=== PATIENT | female | born 1990 | race Caucasian/White ===

== ENCOUNTER → 2016-10-07 | Outpatient (CLI) | payer OTHER | LOC: MW.CHOBGYN 12:09 | PROVIDERS: ATTEND Obstetrics & Gynecology | DX: R10.9 Unspecified abdominal pain (principal) | CPT/HCPCS: 36415; 84702 ==

== ENCOUNTER → 2016-12-09 | Outpatient (CLI) | payer OTHER ==
[~2016-12-09] MED LIST: Iopamidol 612 MG/ML 30 ML SDV IUTERINE STA
--- NOTE | 2016-12-09 11:23 | CR ---
EXAMINATION: Hysterosalpingogram. HISTORY: Infertility. Evaluate for tubal patency. History of tubal and salpingectomy. PROCEDURE/FINDINGS: Written informed consent was obtained from the patient. Perineum was prepped wit h Betadine and after placement of vaginal speculum, the cervix was prepped with Betadine. A 5 [place] catheter was placed and after inflation of the balloon, 10 cc of contrast was injected until cornua l regions are filled and multiple views of the pelvis are obtained. The uterine cavity is normal in configuration. No suspicious filling defects are seen. The left fallopian tubes are patent and spillage of contrast is noted into peritoneal cavity. The ri ght fallopian tube is partially visualized to the mid point, consistent with history. IMPRESSION: 1. Patent left fallopian tube. 2. 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
== END ==
LOC: MW.DI 08:26
PROVIDERS: ATTEND Obstetrics & Gynecology
DX: N92.6 Irregular menstruation, unspecified (principal); N97.1 Female infertility of tubal origin
CPT/HCPCS: 58340; 74740; 81025; Q9967

== ENCOUNTER 2020-04-12 00:14 | Inpatient (IN) | payer BC ==
[2020-04-12] MEDS ORDERED: Tranexamic Acid 1,000 MG in Sodium Chloride 0.9% 100 ML IV PRN (00:54)
[2020-04-12] MEDS ORDERED: Terbutaline 1 MG/ML SDV SUBCUT PRN (00:54)
[2020-04-12] MEDS ORDERED: Carboprost Tromethamine 250 MCG/1 ML Amp IM PRN (00:54)
[2020-04-12] MEDS ORDERED: Water For Irrigation,Sterile 1,000 ML Container IRR PRN (00:54)
[2020-04-12] MEDS ORDERED: Butorphanol 1 MG/ML SDV IVPUSH PRN (00:54)
[2020-04-12] MEDS ORDERED: Methylergonovine 0.2 MG/1 ML Amp IM PRN (00:54)
[2020-04-12] MEDS ORDERED: Sodium Chloride 0.9% 10 ML Syringe FLUSH PRN (00:54)
[2020-04-12] MEDS ORDERED: Misoprostol 25 MCG (1/4 of 100 MCG) Tab VAG PRN ×2 (00:54)
[2020-04-12] MEDS ORDERED: Nalbuphine 10 MG/1 ML Vial IVPUSH PRN (00:54)
[2020-04-12] MEDS ORDERED: Sodium Chloride 0.9% 10 ML SDV IV PRN (00:54)
[2020-04-12] MEDS ORDERED: Misoprostol 200 MCG Tab PO PRN (00:54)
[2020-04-12] MEDS ORDERED: Lidocaine 1% 50 ML MDV INJECT PRN (00:54)
[2020-04-12] MEDS ORDERED: Sodium Chloride 0.9% 2.5 ML Syringe FLUSH PRN (00:54)
[2020-04-12] MEDS ORDERED: Oxytocin/0.9 % Sodium Chloride 30 UNIT/500 ML BAG IV SCH ×2 (01:00)
[2020-04-12] MEDS ORDERED: Misoprostol 25 MCG (1/4 of 100 MCG) Tab PO ONE (01:01)
[2020-04-12] MEDS ORDERED: Ondansetron 4 MG/2 ML SDV IVPUSH PRN (01:23)
--- NOTE | 2020-04-12 07:29 | PCM.LDHP ---
L&D History of Present Illness - General Date of Service: 04/12/20 Admit Problem/Dx: Patient Status Order with Admit Dx/Problem 04/12/20 00:54 Patient Status [ADT] Routine Admission Diagnosis/Problem Admission Diagnosis/Problem 04/12/20 07:23 Radha is a 29 yo at 39.6 weeks gestation (DEEPALI 04/13/2020) that presents today for elective IOL. A neg, RI, GBS neg. Rhogam received 01/18/2020 at 28 weeks gestation. Patient denies any complaints or concerns at this time. Pertinent medical history includes GERD, SAB. FHR 130, + accels, no decels, Cat I. Julia mild-moderate q 2-4 min. Denies LOF, vaginal bleeding; reports ample movement. C/O 6-7/10 contraction pain. SVE 3-4/90/-2, intact, cephalic. Last dose of cytotec at 1:56 am. 04/12/20 07:29 Source of Information: Patient History Limitations: Reports: No Limitations - History of Present Illness Pain Score: 8 - Related Data Allergies/Adverse Reactions: Allergies Allergy/AdvReac Type Severity Reaction Status Date / Time No Known Allergies Allergy Verified 04/12/20 00:26 Home Medications: Home Meds Famotidine 40 mg PO DAILY 04/04/20 [History] 95/Iron Fum/Folic/Dha [ + Dha Combo Pack] 1 tab PO 04/12/20 [History] Past Medical History HEENT History: Reports: None Cardiovascular History: Reports: None Respiratory History: Reports: None Gastrointestinal History: Reports: GERD Genitourinary History: Reports: None [employer] History: Reports: , Spontaneous : 4 Para: 0 Musculoskeletal History: Reports: None Neurological History: Reports: Migraines Psychiatric History: Reports: None Endocrine/Metabolic History: Reports: None Hematologic History: Reports: None, Other (See Below) (Maternal Rh negative status) Immunologic History: Reports: None Oncologic (Cancer) History: Reports: None Dermatologic History: Reports: None - Infectious Disease History Infectious Disease History: Reports: Chicken Pox - Past Surgical History Head Surgeries/Procedures: Reports: None HEENT Surgical History: Reports: None Cardiovascular Surgical History: Reports: None Respiratory Surgical History: Reports: None GI Surgical History: Reports: None Female Surgical History: Reports: D&C Endocrine Surgical History: Reports: None Neurological Surgical History: Reports: None Musculoskeletal Surgical History: Reports: None Oncologic Surgical History: Reports: None Dermatological Surgical History: Reports: None Social & Family History - Family History HEENT: Reports: Hearing Impairment, Impaired Vision Cardiac: Reports: Hypertension Respiratory: Reports: None GI: Reports: Cholelithiasis : Reports: None OBGYN: Reports: Musculoskeletal: Reports: None Neurological: Reports: None Psychiatric: Reports: None Endocrine/Metabolic: Reports: Diabetes, type II Hematologic: Reports: None Immunologic: Reports: None Dermatologic: Reports: None Oncologic: Reports: None - Tobacco Use Smoking Status *Q: Former Smoker Used Tobacco, but Quit: Yes Month/Year Tobacco Last Used: 08/2019 Second Hand Smoke Exposure: Yes - Caffeine Use Caffeine Use: Reports: Coffee - Alcohol Use Alcohol Use History: No - Recreational Drug Use Recreational Drug Use: No H&P Review of Systems - Review of Systems: Review Of Systems: Comprehensive ROS is negative, except as noted in HPI. General: Reports: No Symptoms HEENT: Reports: No Symptoms Pulmonary: Reports: No Symptoms Cardiovascular: Reports: No Symptoms Gastrointestinal: Reports: No Symptoms Genitourinary: Reports: No Symptoms Musculoskeletal: Reports: No Symptoms Skin: Reports: No Symptoms Psychiatric: Reports: No Symptoms Neurological: Reports: No Symptoms Hematologic/Lymphatic: Reports: No Symptoms Immunologic: Reports: No Symptoms L&D Exam - Exam Exam: See Below - Vital Signs Vital Signs: T 98.3, HR 95, RR 16, BP 129/88 (95) Weight: 205 lb - OB Specific Fundal Height In cm: 39 Contraction Duration (sec): 40-60 Contraction Frequency (min): 2-4 Contraction Intensity: Mild to Moderate Movement: Active Heart Tones: Present Heart Tones per Min: 130 Heart Rate (FHR) Variability: Moderate (6-25 bmp) Presentation: Vertex - Bowers Score Bowers Score Cervix Position: Midposition Bowers Score Consistency: Soft Bowers Score Effacement: >80% Bowers Score Dilation: 1-2 cm Bowers Score Infant's Station: -2 Bowers Score Total: 8 - Exam General: Alert, Oriented, Cooperative, Mild Distress HEENT: Conjunctiva Clear, Hearing Intact, Mucosa Moist & [place], Posterior Pharynx Clear, PERRLA Neck: Supple, Trachea Midline Lungs: Clear to Auscultation, Normal Respiratory Effort Cardiovascular: Regular Rate, Regular Rhythm GI/Abdominal Exam: Normal Bowel Sounds, Soft, Non-Tender, No Organomegaly, No Distention Rectal Exam: Deferred Genitourinary: Normal external exam, Normal bimanual exam, Enlarged uterus (Gravid uterus) Back Exam: Normal Inspection, Full Range of Motion Extremities: Normal Inspection, Normal Range of Motion, Non-Tender, No Pedal Edema, Normal Capillary Refill Skin: Warm, Dry, Intact Neurological: Cranial Nerves Intact, Reflexes Equal Bilateral Psychiatric: Alert, Normal Affect, Normal Mood - Patient Data Lab Results Last 24 hrs: Laboratory Results - last 24 hr 04/12/20 04/12/20 04/12/20 Range/Units 00:50 00:50 01:15 WBC 9.38 (4.0-11.0) K/uL RBC 3.76 L (4.30-5.90) M/uL Hgb 12.0 (12.0-16.0) g/dL Hct 35.5 L (36.0-46.0) % MCV 94.4 (80.0-98.0) fL MCH 31.9 (27.0-32.0) pg MCHC 33.8 (31.0-37.0) g/dL RDW Std Deviation 42.2 (28.0-62.0) fl RDW Coeff of Nancy 13 (11.0-15.0) % Plt Count 253 (150-400) K/uL MPV 10.20 (7.40-12.00) fL COVID-19 (MICHAEL) NEGATIVE (NEGATIVE) Blood Type A NEGATIVE Antibody Screen NEGATIVE Result Diagrams: 04/12/20 00:50 - Problem List (1) Encounter for induction of labor SNOMED Code(s): 662443494 ICD Code: Z34.90 - ENCNTR FOR SUPRVSN OF NORMAL , UNSP, UNSP TRIMESTER Status: Acute Priority: High Current Visit: Yes (2) 39 weeks gestation of SNOMED Code(s): 47919057 ICD Code: Z3A.39 - 39 WEEKS GESTATION OF Status: Acute Priority: High Current Visit: Yes Problem List Initiated/Reviewed/Updated: Yes Orders Last 24hrs: Active Orders 24 hr Category Date Time Status Patient Status [ADT] Routine ADT 04/12/20 00:54 Active Bedrest Bathroom Privileges [RC] ASDIRECTED Care 04/12/20 00:54 Active Communication Order [RC] ASDIRECTED Care 04/12/20 00:54 Active Communication Order [RC] ASDIRECTED Care 04/12/20 00:54 Active Communication Order [RC] ASDIRECTED Care 04/12/20 00:54 Active Heart Tones [RC] CONTINUOUS Care 04/12/20 00:54 Active Non Stress Test [RC] PER UNIT ROUTINE Care 04/12/20 00:54 Active May Shower [RC] ASDIRECTED Care 04/12/20 00:54 Active Notify Provider [RC] PRN Care 04/12/20 00:54 Active Notify Provider [RC] PRN Care 04/12/20 00:54 Active Notify Provider [RC] PRN Care 04/12/20 00:54 Active Notify Provider [RC] STAT Care 04/12/20 00:54 Active Up ad Maddi [RC] ASDIRECTED Care 04/12/20 00:54 Active Vaginal Exam [RC] PRN Care 04/12/20 00:54 Active Vaginal Exam [RC] PRN Care 04/12/20 00:54 Active Vital Signs [RC] PER UNIT ROUTINE Care 04/12/20 00:54 Active Vital Signs [RC] PER UNIT ROUTINE Care 04/12/20 00:54 Active RPR (SYPHILIS SERO) W/ RFLX [REF] Routine Lab 04/12/20 00:50 Received Butorphanol [Stadol] Med 04/12/20 00:54 Active 1 mg IVPUSH Q1H PRN Carboprost Tromethamine [Hemabate DS] Med 04/12/20 00:54 Active 250 mcg IM ASDIRECTED PRN Lactated Ringers [Ringers, Lactated] 1,000 ml Med 04/12/20 01:00 Active IV ASDIRECTED Lidocaine 1% [Xylocaine 1%] Med 04/12/20 00:54 Active 50 ml INJECT ONETIME PRN Methylergonovine [Methergine] Med 04/12/20 00:54 Active 0.2 mg IM ASDIRECTED PRN Nalbuphine [Nubain] Med 04/12/20 00:54 Active 10 mg IVPUSH Q1H PRN Ondansetron [Zofran] Med 04/12/20 01:23 Active 4 mg IVPUSH Q6H PRN Oxytocin/0.9 % Sodium Chloride [Oxytocin 30 Unit/500 ML Med 04/12/20 01:00 Active -NS] 30 unit in 500 ml IV TITRATE Oxytocin/0.9 % Sodium Chloride [Oxytocin 30 Unit/500 ML Med 04/12/20 01:00 Active -NS] 30 unit in 500 ml IV TITRATE Sodium Chloride 0.9% [Normal Saline] Med 04/12/20 00:54 Active 10 ml IV ASDIRECTED PRN Sodium Chloride 0.9% [Saline Flush] Med 04/12/20 00:54 Active 10 ml FLUSH ASDIRECTED PRN Sodium Chloride 0.9% [Saline Flush] Med 04/12/20 00:54 Active 2.5 ml FLUSH ASDIRECTED PRN Terbutaline [Brethine] Med 04/12/20 00:54 Active 0.25 mg SUBCUT ASDIRECTED PRN Tranexamic Acid [Cyklokapron] 1,000 mg Med 04/12/20 00:54 Active Sodium Chloride 0.9% [Normal Saline] 100 ml IV ONETIME Water For Irrigation,Sterile [Sterile Water for Med 04/12/20 00:54 Active Irrigation] 1,000 ml IRR ASDIRECTED PRN miSOPROStoL [Cytotec] Med 04/12/20 00:54 Active 200 mcg PO ONETIME PRN miSOPROStoL [Cytotec] Med 04/12/20 00:54 Active 25 mcg VAG ONETIME PRN miSOPROStoL [Cytotec] Med 04/12/20 00:54 Active 25 mcg VAG Q4H PRN Scalp Electrode [WOMSER] Per Unit Routine Oth 04/12/20 00:54 Ordered Medication Administration Instruction [OM.PC] Q3H Oth 04/12/20 01:00 Ordered Peripheral IV Insertion Adult [OM.PC] Routine Oth 04/12/20 00:54 Ordered Resuscitation Status Routine Resus Stat 04/12/20 00:54 Ordered Medication Orders Butorphanol Tartrate (Stadol) 1 mg IVPUSH Q1H PRN PRN Reason: Pain Last Admin: 04/12/20 04:18 Dose: 1 mg Documented by: HANSA Carboprost Tromethamine (Hemabate Ds) 250 mcg IM ASDIRECTED PRN PRN Reason: Post Hemorrhage Oxytocin/Sodium Chloride (Oxytocin 30 Unit/500 Ml-Ns) 30 unit in 500 mls @ 500 mls/hr IV TITRATE [place] Tranexamic Acid 1,000 mg/ (Sodium Chloride) 110 mls @ 660 mls/hr IV ONETIME PRN PRN Reason: Bleeding Oxytocin/Sodium Chloride (Oxytocin 30 Unit/500 Ml-Ns) 30 unit in 500 mls @ 2 mls/hr IV TITRATE [place]; Protocol Lactated Ringer's (Ringers, Lactated) 1,000 mls @ 150 mls/hr IV ASDIRECTED [place] Lidocaine HCl (Xylocaine 1%) 50 ml INJECT ONETIME PRN PRN Reason: Laceration repair Methylergonovine Maleate (Methergine) 0.2 mg IM ASDIRECTED PRN PRN Reason: Post Hemorrhage Misoprostol (Cytotec) 200 mcg PO ONETIME PRN PRN Reason: Post Hemorrhage Misoprostol (Cytotec) 25 mcg VAG ONETIME PRN PRN Reason: Cervical Ripening Last Admin: 04/12/20 01:56 Dose: 25 mcg Documented by: HANSA Misoprostol (Cytotec) 25 mcg VAG Q4H PRN PRN Reason: Cervical Ripening Nalbuphine HCl (Nubain) 10 mg IVPUSH Q1H PRN PRN Reason: Pain (severe 7-10) Ondansetron HCl (Zofran) 4 mg IVPUSH Q6H PRN PRN Reason: Nausea/Vomiting Sodium Chloride (Saline Flush) 10 ml FLUSH ASDIRECTED PRN PRN Reason: Keep Vein Open Sodium Chloride (Saline Flush) 2.5 ml FLUSH ASDIRECTED PRN PRN Reason: Keep Vein Open Sodium Chloride (Normal Saline) 10 ml IV ASDIRECTED PRN PRN Reason: IV Use Sterile Water (Sterile Water For Irrigation) 1,000 ml IRR ASDIRECTED PRN PRN Reason: delivery Terbutaline Sulfate (Brethine) 0.25 mg SUBCUT ASDIRECTED PRN PRN Reason: Tacysystole Assessment/Plan Comment:: Admit to L&D for observation of elective IOL at 39.6 weeks gestation in anticipation of . See new orders. May receive an epidural between 5-6 cm. RN to notify CNM if problems or concerns arise. Dr. Garcia notified and agreeable with POC.
[2020-04-12] MEDS: Lactated Ringers 1,000 ML IV SCH ×2 (07:42→08:22)
[2020-04-12] MEDS ORDERED: Ropivacaine HCl/PF 100 ML ONE (08:00)
[2020-04-12] MEDS ORDERED: fentaNYL 100 MCG/2 ML SDV ONE (08:00)
--- NOTE | 2020-04-12 08:26 | PCM.PREANE ---
Preanesthetic Assessment - Anesthesia/Transfusion/Family Hx Anesthesia History: Prior Anesthesia Without Reaction Family History of Anesthesia Reaction: No Transfusion History: No Prior Transfusion(s) - Physical Assessment NPO Status Date: 04/12/20 NPO Status Time: 01:00 Height: 1.73 m Weight: 92.986 kg ASA Class: 2 - Lab Values: Laboratory Last Values WBC 9.38 K/uL (4.0-11.0) 04/12/20 00:50 RBC 3.76 M/uL (4.30-5.90) L 04/12/20 00:50 Hgb 12.0 g/dL (12.0-16.0) 04/12/20 00:50 Hct 35.5 % (36.0-46.0) L 04/12/20 00:50 MCV 94.4 fL (80.0-98.0) 04/12/20 00:50 MCH 31.9 pg (27.0-32.0) 04/12/20 00:50 MCHC 33.8 g/dL (31.0-37.0) 04/12/20 00:50 RDW Std Deviation 42.2 fl (28.0-62.0) 04/12/20 00:50 RDW Coeff of Nancy 13 % (11.0-15.0) 04/12/20 00:50 Plt Count 253 K/uL (150-400) 04/12/20 00:50 MPV 10.20 fL (7.40-12.00) 04/12/20 00:50 COVID-19 (MICHAEL) NEGATIVE (NEGATIVE) 04/12/20 01:15 Blood Type A NEGATIVE 04/12/20 00:50 Antibody Screen NEGATIVE 04/12/20 00:50 - Allergies Allergies/Adverse Reactions: Allergies Allergy/AdvReac Type Severity Reaction Status Date / Time No Known Allergies Allergy Verified 04/12/20 00:26 - Acknowledgements Anesthesia Type Planned: Epidural Pt an Appropriate Candidate for the Planned Anesthesia: Yes Alternatives and Risks of Anesthesia Discussed w Pt/Guardian: Yes Pt/Guardian Understands and Agrees with Anesthesia Plan: Yes PreAnesthesia Questionnaire HEENT History: Reports: None Cardiovascular History: Reports: None Respiratory History: Reports: None Gastrointestinal History: Reports: GERD Genitourinary History: Reports: None [employer] History: Reports: , Spontaneous Musculoskeletal History: Reports: None Neurological History: Reports: Migraines Psychiatric History: Reports: None Endocrine/Metabolic History: Reports: None Hematologic History: Reports: None, Other (See Below) (Maternal Rh negative status) Immunologic History: Reports: None Oncologic (Cancer) History: Reports: None Dermatologic History: Reports: None - Infectious Disease History Infectious Disease History: Reports: Chicken Pox - Past Surgical History Head Surgeries/Procedures: Reports: None HEENT Surgical History: Reports: None Cardiovascular Surgical History: Reports: None Respiratory Surgical History: Reports: None GI Surgical History: Reports: None Female Surgical History: Reports: D&C Endocrine Surgical History: Reports: None Neurological Surgical History: Reports: None Musculoskeletal Surgical History: Reports: None Oncologic Surgical History: Reports: None Dermatological Surgical History: Reports: None - SUBSTANCE USE Smoking Status *Q: Former Smoker Tobacco Use Within Last Twelve Months: Cigarettes Second Hand Smoke Exposure: Yes Recreational Drug Use History: No - HOME MEDS Home Medications: Home Meds Famotidine 40 mg PO DAILY 04/04/20 [History] 95/Iron Fum/Folic/Dha [ + Dha Combo Pack] 1 tab PO 04/12/20 [History] - CURRENT (IN HOUSE) MEDS Current Meds: Current Medications Butorphanol Tartrate (Stadol) 1 mg IVPUSH Q1H PRN PRN Reason: Pain Last Admin: 04/12/20 04:18 Dose: 1 mg Documented by: Carboprost Tromethamine (Hemabate Ds) 250 mcg IM ASDIRECTED PRN PRN Reason: Post Hemorrhage Oxytocin/Sodium Chloride (Oxytocin 30 Unit/500 Ml-Ns) 30 unit in 500 mls @ 500 mls/hr IV TITRATE [place] Tranexamic Acid 1,000 mg/ (Sodium Chloride) 110 mls @ 660 mls/hr IV ONETIME PRN PRN Reason: Bleeding Oxytocin/Sodium Chloride (Oxytocin 30 Unit/500 Ml-Ns) 30 unit in 500 mls @ 2 mls/hr IV TITRATE [place]; Protocol Lactated Ringer's (Ringers, Lactated) 1,000 mls @ 150 mls/hr IV ASDIRECTED [place] Last Infusion: 04/12/20 08:22 Dose: 150 mls/hr Documented by: Lidocaine HCl (Xylocaine 1%) 50 ml INJECT ONETIME PRN PRN Reason: Laceration repair Methylergonovine Maleate (Methergine) 0.2 mg IM ASDIRECTED PRN PRN Reason: Post Hemorrhage Misoprostol (Cytotec) 200 mcg PO ONETIME PRN PRN Reason: Post Hemorrhage Misoprostol (Cytotec) 25 mcg VAG ONETIME PRN PRN Reason: Cervical Ripening Last Admin: 04/12/20 01:56 Dose: 25 mcg Documented by: Misoprostol (Cytotec) 25 mcg VAG Q4H PRN PRN Reason: Cervical Ripening Nalbuphine HCl (Nubain) 10 mg IVPUSH Q1H PRN PRN Reason: Pain (severe 7-10) Ondansetron HCl (Zofran) 4 mg IVPUSH Q6H PRN PRN Reason: Nausea/Vomiting Sodium Chloride (Saline Flush) 10 ml FLUSH ASDIRECTED PRN PRN Reason: Keep Vein Open Sodium Chloride (Saline Flush) 2.5 ml FLUSH ASDIRECTED PRN PRN Reason: Keep Vein Open Sodium Chloride (Normal Saline) 10 ml IV ASDIRECTED PRN PRN Reason: IV Use Sterile Water (Sterile Water For Irrigation) 1,000 ml IRR ASDIRECTED PRN PRN Reason: delivery Terbutaline Sulfate (Brethine) 0.25 mg SUBCUT ASDIRECTED PRN PRN Reason: Tacysystole Discontinued Medications Fentanyl (Sublimaze) Confirm Administered Dose 100 mcg .ROUTE .STK-MED ONE Stop: 04/12/20 08:01 Ropivacaine (Naropin 0.2%) Confirm Administered Dose 100 mls @ as directed .ROUTE .STK-MED ONE Stop: 04/12/20 08:01 Misoprostol (Cytotec) 25 mcg PO ONETIME ONE Stop: 04/12/20 01:02 Last Admin: 04/12/20 01:56 Dose: 25 mcg Documented by:
--- NOTE | 2020-04-12 08:29 | PCM.PRNOTE ---
- Free Text/Narrative Note: Anes Note Patietn requests epidural for L&D. Sitting position, level L2-L3 midline approach. Sterile technique. Chlorapep scrub to lumbar area. Sterile fenestrated drape applied. Epidural space easily achieved using SHAHLA tecnhique. SHAHLA at 3 cm. Cath threaded 5 cm with ease. Cath secured at 10 cm at skin using clear adhesive dessing. 0815 test 3 cc 1.5% lido with epi negative. 0818 Load 10 cc 0.2% ropivicaine with 1 mcg cc fentanyl in slow divided doses. 0823 Pump started with 90 cc same solution. Rate is 8 cc hr with 6 cc q 20 min prn bolus. Estefanía well. Time with patient [id number] Ej Chaparro CRNA
--- NOTE | 2020-04-12 14:25 | PCM.DEL ---
L & D Note - General Info Date of Service: 04/12/20 Mother's Due Date: 04/13/20 - Delivery Note Labor: Augmented by Oxytocin Cervical Ripening Method: Misoprostil Delivery Outcome: Livebirth Delivery Method: Spontaneous Vaginal Delivery-Single Presentation: Vertex Nuchal Cord: Present (x3), Reduced Anesthesia Type: Epidural Episiotomy Type: None Laceration: None Placenta: Intact, Spontaneous Cord: 3 Vessels Estimated Blood Loss: 150 [place]: Suctioned, Bulb Syringe, Stimulated Score 1 min: 8 Score 5 min: 8 Second Stage Interventions: Reports: Second Nurse Assessed Progress of Descent, Second Nurse Reviewed Contraction Pattern, Second Nurse Reviewed Heart Tones, Encouragement Given, Pushing Effectively, Pushing, Pulls Own Legs Back Delivery Comments (Free Text/Narrative):: viable female; epidural for pain relief; head delivered with good pushing; shoulders followed easily after; nuchal x3, reduced; baby to mom's abdomen [id number] for assessment; APGARs 8/8; weight pending; cord doubly clamped, cut by FOB after approximately 3 minutes; baby to warmer for continued assessment; placenta delivered grossly intact, sulma; 3VC; EBL 150 mL; pitocin to IVF; perineum intact; mom and baby left in stable condition with nurses at warmer and bedside for assessment - General Info Date of Service: 04/12/20 Admission Dx/Problem (Free Text): Patient Status Order with Admit Dx/Problem 04/12/20 00:54 Patient Status [ADT] Routine Admission Diagnosis/Problem Admission Diagnosis/Problem 04/12/20 07:23 Radha is a 29 yo at 39.6 weeks gestation (DEEPALI 04/13/2020) that presents today for elective IOL. A neg, RI, GBS neg. Rhogam received 01/18/2020 at 28 weeks gestation. Patient denies any complaints or concerns at this time. Pertinent medical history includes GERD, SAB. FHR 130, + accels, no decels, Cat I. Julia mild-moderate q 2-4 min. Denies LOF, vaginal bleeding; reports ample movement. C/O 6-7/10 contraction pain. SVE 3-4/90/-2, intact, cephalic. Last dose of cytotec at 1:56 am. 04/12/20 07:29 Functional Status: Reports: Pain Controlled - Review of Systems General: Reports: No Symptoms HEENT: Reports: No Symptoms Pulmonary: Reports: No Symptoms Cardiovascular: Reports: No Symptoms Gastrointestinal: Reports: No Symptoms Genitourinary: Reports: No Symptoms Musculoskeletal: Reports: No Symptoms Skin: Reports: No Symptoms Neurological: Reports: No Symptoms Psychiatric: Reports: No Symptoms - Patient Data Weight - Most Recent: 205 lb Lab Results Last 24 Hours: Laboratory Results - last 24 hr 04/12/20 04/12/20 04/12/20 Range/Units 00:50 00:50 01:15 WBC 9.38 (4.0-11.0) K/uL RBC 3.76 L (4.30-5.90) M/uL Hgb 12.0 (12.0-16.0) g/dL Hct 35.5 L (36.0-46.0) % MCV 94.4 (80.0-98.0) fL MCH 31.9 (27.0-32.0) pg MCHC 33.8 (31.0-37.0) g/dL RDW Std Deviation 42.2 (28.0-62.0) fl RDW Coeff of Nancy 13 (11.0-15.0) % Plt Count 253 (150-400) K/uL MPV 10.20 (7.40-12.00) fL COVID-19 (MICHAEL) NEGATIVE (NEGATIVE) Blood Type A NEGATIVE Antibody Screen NEGATIVE Med Orders - Current: Current Medications Butorphanol Tartrate (Stadol) 1 mg IVPUSH Q1H PRN PRN Reason: Pain Last Admin: 04/12/20 04:18 Dose: 1 mg Documented by: Carboprost Tromethamine (Hemabate Ds) 250 mcg IM ASDIRECTED PRN PRN Reason: Post Hemorrhage Oxytocin/Sodium Chloride (Oxytocin 30 Unit/500 Ml-Ns) 30 unit in 500 mls @ 500 mls/hr IV TITRATE [place] Tranexamic Acid 1,000 mg/ (Sodium Chloride) 110 mls @ 660 mls/hr IV ONETIME PRN PRN Reason: Bleeding Oxytocin/Sodium Chloride (Oxytocin 30 Unit/500 Ml-Ns) 30 unit in 500 mls @ 2 mls/hr IV TITRATE [place]; Protocol Last Titration: 04/12/20 12:22 Dose: 4 munits/min, 4 mls/hr Documented by: Lactated Ringer's (Ringers, Lactated) 1,000 mls @ 150 mls/hr IV ASDIRECTED [place] Last Infusion: 04/12/20 08:22 Dose: 150 mls/hr Documented by: Lidocaine HCl (Xylocaine 1%) 50 ml INJECT ONETIME PRN PRN Reason: Laceration repair Methylergonovine Maleate (Methergine) 0.2 mg IM ASDIRECTED PRN PRN Reason: Post Hemorrhage Misoprostol (Cytotec) 200 mcg PO ONETIME PRN PRN Reason: Post Hemorrhage Misoprostol (Cytotec) 25 mcg VAG ONETIME PRN PRN Reason: Cervical Ripening Last Admin: 04/12/20 01:56 Dose: 25 mcg Documented by: Misoprostol (Cytotec) 25 mcg VAG Q4H PRN PRN Reason: Cervical Ripening Nalbuphine HCl (Nubain) 10 mg IVPUSH Q1H PRN PRN Reason: Pain (severe 7-10) Ondansetron HCl (Zofran) 4 mg IVPUSH Q6H PRN PRN Reason: Nausea/Vomiting Sodium Chloride (Saline Flush) 10 ml FLUSH ASDIRECTED PRN PRN Reason: Keep Vein Open Sodium Chloride (Saline Flush) 2.5 ml FLUSH ASDIRECTED PRN PRN Reason: Keep Vein Open Sodium Chloride (Normal Saline) 10 ml IV ASDIRECTED PRN PRN Reason: IV Use Sterile Water (Sterile Water For Irrigation) 1,000 ml IRR ASDIRECTED PRN PRN Reason: delivery Terbutaline Sulfate (Brethine) 0.25 mg SUBCUT ASDIRECTED PRN PRN Reason: Tacysystole Discontinued Medications Fentanyl (Sublimaze) Confirm Administered Dose 100 mcg .ROUTE .STK-MED ONE Stop: 04/12/20 08:01 Ropivacaine (Naropin 0.2%) Confirm Administered Dose 100 mls @ as directed .ROUTE .STK-MED ONE Stop: 04/12/20 08:01 Misoprostol (Cytotec) 25 mcg PO ONETIME ONE Stop: 04/12/20 01:02 Last Admin: 04/12/20 01:56 Dose: 25 mcg Documented by: - Exam General: Alert, Oriented, Cooperative, No Acute Distress Lungs: Normal Respiratory Effort Cardiovascular: Regular Rate, Regular Rhythm GI/Abdominal Exam: Soft, Non-Tender (Female) Exam: Normal External Exam Back Exam: Normal Inspection Extremities: Normal Inspection, Normal Capillary Refill Skin: Warm, Dry, Intact Neurological: No New Focal Deficit, Normal Speech Psy/Mental Status: Alert, Normal Affect, Normal Mood - Problem List & Annotations (1) (spontaneous vaginal delivery) SNOMED Code(s): 508856197 Code(s): O80 - ENCOUNTER FOR FULL-TERM UNCOMPLICATED DELIVERY Status: Acute Priority: High Current Visit: Yes - Problem List Review Problem List Initiated/Reviewed/Updated: Yes - My Orders Last 24 Hours: My Active Orders 04/12/20 00:50 RPR (SYPHILIS SERO) W/ RFLX [REF] Routine 04/12/20 00:54 Patient Status [ADT] Routine Bedrest Bathroom Privileges [RC] ASDIRECTED Communication Order [RC] ASDIRECTED Communication Order [RC] ASDIRECTED Communication Order [RC] ASDIRECTED Heart Tones [RC] CONTINUOUS Non Stress Test [RC] PER UNIT ROUTINE May Shower [RC] ASDIRECTED Notify Provider [RC] PRN Notify Provider [RC] PRN Notify Provider [RC] PRN Notify Provider [RC] STAT Up ad Maddi [RC] ASDIRECTED Vaginal Exam [RC] PRN Vaginal Exam [RC] PRN Vital Signs [RC] PER UNIT ROUTINE Vital Signs [RC] PER UNIT ROUTINE Butorphanol [Stadol] 1 mg IVPUSH Q1H PRN Carboprost Tromethamine [Hemabate DS] 250 mcg IM ASDIRECTED PRN Lidocaine 1% [Xylocaine 1%] 50 ml INJECT ONETIME PRN Methylergonovine [Methergine] 0.2 mg IM ASDIRECTED PRN Nalbuphine [Nubain] 10 mg IVPUSH Q1H PRN Sodium Chloride 0.9% [Normal Saline] 10 ml IV ASDIRECTED PRN Sodium Chloride 0.9% [Saline Flush] 10 ml FLUSH ASDIRECTED PRN Sodium Chloride 0.9% [Saline Flush] 2.5 ml FLUSH ASDIRECTED PRN Terbutaline [Brethine] 0.25 mg SUBCUT ASDIRECTED PRN Tranexamic Acid [Cyklokapron] 1,000 mg Sodium Chloride 0.9% [Normal Saline] 100 ml IV ONETIME Water For Irrigation,Sterile [Sterile Water for Irrigation] 1,000 ml IRR ASDIRECTED PRN miSOPROStoL [Cytotec] 200 mcg PO ONETIME PRN miSOPROStoL [Cytotec] 25 mcg VAG ONETIME PRN miSOPROStoL [Cytotec] 25 mcg VAG Q4H PRN Scalp Electrode [WOMSER] Per Unit Routine Peripheral IV Insertion Adult [OM.PC] Routine Resuscitation Status Routine 04/12/20 01:00 Lactated Ringers [Ringers, Lactated] 1,000 ml IV ASDIRECTED Oxytocin/0.9 % Sodium Chloride [Oxytocin 30 Unit/500 ML-NS] 30 unit in 500 ml IV TITRATE Oxytocin/0.9 % Sodium Chloride [Oxytocin 30 Unit/500 ML-NS] 30 unit in 500 ml IV TITRATE Medication Administration Instruction [OM.PC] Q3H 04/12/20 01:23 Ondansetron [Zofran] 4 mg IVPUSH Q6H PRN - Plan Plan:: Admit to L&D for observation of elective IOL at 39.6 weeks gestation in anticipation of . See new orders. May receive an epidural between 5-6 cm. RN to notify CNM if problems or concerns arise. Dr. Garcia notified and agreeable with POC. Delivery A: viable female; nuchal x3, reduced; baby to mom's abdomen [id number] for assessment; APGARs 8/8; weight pending; cord doubly clamped, cut by FOB after approximately 3 minutes; baby to warmer for continued assessment; placenta delivered grossly intact, ozuna; 3VC; EBL 150 mL; pitocin to IVF; perineum intact; mom and baby left in stable condition with nurses at warmer and bedside for assessment P: Routine plan of care; Dr. Garcia updated.
[2020-04-12] MEDS ORDERED: Ibuprofen 800 MG Tab PO PRN (14:27)
[2020-04-12] MEDS ORDERED: Docusate Sodium 100 MG Cap PO PRN (14:27)
[2020-04-12] MEDS ORDERED: Bisacodyl 10 MG Supp RECTAL PRN (14:27)
[2020-04-12] MEDS ORDERED: Acetaminophen 500 MG Tab PO PRN ×2 (14:27)
[2020-04-12] MEDS ORDERED: Witch Hazel Medicated Pads 40/Jar TOP PRN (14:27)
[2020-04-12] MEDS ORDERED: oxyCODONE 5 MG Tab PO PRN (14:27)
[2020-04-12] MEDS ORDERED: Lanolin 100% Cream 7 GM Tube TOP PRN (14:27)
[2020-04-12] MEDS ORDERED: Benzocaine/Menthol 20%-0.5% Spray 78 GM Cannister TOP PRN (14:27)
[2020-04-12] MEDS ORDERED: Ibuprofen 400 MG Tab PO PRN (14:27)
[2020-04-13 07:23] VITALS: BP 110/67; PULSE 81
--- NOTE | 2020-04-13 09:34 | PCM.DCSUM1 ---
Discharge Summary - Hospital Course Free Text/Narrative:: Discharge home with baby. Follow up in the clinic in six weeks for routine visit. Diagnosis: Stroke: No Modified [place] Scale: No Symptoms at All Modified [place] Scale Score: 0 - Discharge Data Discharge Date: 04/13/20 Discharge Disposition: Home, Self-Care 01 Condition: Good - Referral to Home Health Primary Care Physician: PCP None - Discharge Diagnosis/Problem(s) (1) (spontaneous vaginal delivery) SNOMED Code(s): 140862576 ICD Code: O80 - ENCOUNTER FOR FULL-TERM UNCOMPLICATED DELIVERY Status: Acute Priority: High Current Visit: Yes - Patient Instructions Diet: Regular Diet as Tolerated, Drink 8-10+ Glasses/Day Activity: As Tolerated, No Strenuous Activities, Rest and Relax Today Driving: May Drive Today Showering/Bathing: May Shower Notify Provider of: Fever, Increased Pain, Swelling and Redness, Drainage, Nausea and/or Vomiting - Discharge Plan *PRESCRIPTION DRUG MONITORING PROGRAM REVIEWED*: Not Applicable *COPY OF PRESCRIPTION DRUG MONITORING REPORT IN PATIENT MICHAEL: Not Applicable Prescriptions/Med Rec: Ibuprofen [Motrin] 800 mg PO Q6H PRN #90 tablet PRN Reason: Pain Home Medications: Home Meds Famotidine 40 mg PO DAILY 04/04/20 [History] 95/Iron Fum/Folic/Dha [ + Dha Combo Pack] 1 tab PO 04/12/20 [History] Ibuprofen [Motrin] 800 mg PO Q6H PRN #90 tablet 04/13/20 [Rx] Oxygen Therapy Mode: Room Air Referrals: [facility] [Outside] Duc Garcia MD [Physician] - 05/24/20 2:45 pm - Discharge Summary/Plan Comment DC Time >30 min.: Yes - General Info Date of Service: 04/13/20 Admission Dx/Problem (Free Text: Patient Status Order with Admit Dx/Problem 04/12/20 00:54 Patient Status [ADT] Routine Admission Diagnosis/Problem Admission Diagnosis/Problem 04/12/20 07:23 Radha is a 29 yo at 39.6 weeks gestation (DEEPALI 04/13/2020) that presents today for elective IOL. A neg, RI, GBS neg. Rhogam received 01/18/2020 at 28 weeks gestation. Patient denies any complaints or concerns at this time. Pertinent medical history includes GERD, SAB. FHR 130, + accels, no decels, Cat I. Julia mild-moderate q 2-4 min. Denies LOF, vaginal bleeding; reports ample movement. C/O 6-7/10 contraction pain. SVE 3-4/90/-2, intact, cephalic. Last dose of cytotec at 1:56 am. 04/12/20 07:29 Functional Status: Reports: Pain Controlled, Tolerating Diet, Ambulating, Urinating - Review of Systems General: Reports: No Symptoms HEENT: Reports: No Symptoms Pulmonary: Reports: No Symptoms Cardiovascular: Reports: No Symptoms Gastrointestinal: Reports: No Symptoms Genitourinary: Reports: No Symptoms Musculoskeletal: Reports: No Symptoms Skin: Reports: No Symptoms Neurological: Reports: No Symptoms Psychiatric: Reports: No Symptoms - Patient Data Vitals - Most Recent: Last Vital Signs Temp 97.2 F 04/13/20 07:21 Pulse 81 04/13/20 07:21 Resp 19 04/13/20 07:21 BP 110/67 04/13/20 07:21 Pulse Ox 97 04/13/20 07:21 Weight - Most Recent: 205 lb Lab Results - Last 24 hrs: Laboratory Results - last 24 hr 04/13/20 Range/Units 05:45 Hgb 11.9 L (12.0-16.0) g/dL Hct 36.9 (36.0-46.0) % Med Orders - Current: Current Medications Acetaminophen (Tylenol Extra Strength) 500 mg PO Q4H PRN PRN Reason: Pain Acetaminophen (Tylenol Extra Strength) 1,000 mg PO Q4H PRN PRN Reason: Pain Benzocaine/Menthol (Dermoplast Pain Relief 20%-0.5% [place]) 78 gm TOP ASDIRECTED PRN PRN Reason: Perineal Comfort Measure Bisacodyl (Dulcolax) 10 mg RECTAL ONETIME PRN PRN Reason: Constipation Docusate Sodium (Colace) 100 mg PO BID PRN PRN Reason: Constipation Emollient Ointment (Lansinoh Hpa) 0 gm TOP ASDIRECTED PRN PRN Reason: Sore Nipples Ibuprofen (Motrin) 400 mg PO Q4H PRN PRN Reason: Pain Ibuprofen (Motrin) 800 mg PO Q6H PRN PRN Reason: Pain Last Admin: 04/12/20 19:10 Dose: 800 mg Documented by: Oxycodone HCl (Oxycodone) 5 mg PO Q2H PRN PRN Reason: Pain Witch Kendra (Tucks) 1 pad TOP ASDIRECTED PRN PRN Reason: comfort care Discontinued Medications Butorphanol Tartrate (Stadol) 1 mg IVPUSH Q1H PRN PRN Reason: Pain Last Admin: 04/12/20 04:18 Dose: 1 mg Documented by: Carboprost Tromethamine (Hemabate Ds) 250 mcg IM ASDIRECTED PRN PRN Reason: Post Hemorrhage Fentanyl (Sublimaze) Confirm Administered Dose 100 mcg .ROUTE .STK-MED ONE Stop: 04/12/20 08:01 Last Admin: 04/13/20 06:05 Dose: Not Given Documented by: Oxytocin/Sodium Chloride (Oxytocin 30 Unit/500 Ml-Ns) 30 unit in 500 mls @ 500 mls/hr IV TITRATE [place] Tranexamic Acid 1,000 mg/ (Sodium Chloride) 110 mls @ 660 mls/hr IV ONETIME PRN PRN Reason: Bleeding Oxytocin/Sodium Chloride (Oxytocin 30 Unit/500 Ml-Ns) 30 unit in 500 mls @ 2 mls/hr IV TITRATE [place]; Protocol Last Titration: 04/12/20 13:57 Dose: 999 munits/min, 999 mls/hr Documented by: Lactated Ringer's (Ringers, Lactated) 1,000 mls @ 150 mls/hr IV ASDIRECTED [place] Last Infusion: 04/12/20 08:22 Dose: 150 mls/hr Documented by: Ropivacaine (Naropin 0.2%) Confirm Administered Dose 100 mls @ as directed .ROUTE .STFarman-MED ONE Stop: 04/12/20 08:01 Last Admin: 04/13/20 06:06 Dose: Not Given Documented by: Lidocaine HCl (Xylocaine 1%) 50 ml INJECT ONETIME PRN PRN Reason: Laceration repair Methylergonovine Maleate (Methergine) 0.2 mg IM ASDIRECTED PRN PRN Reason: Post Hemorrhage Misoprostol (Cytotec) 200 mcg PO ONETIME PRN PRN Reason: Post Hemorrhage Misoprostol (Cytotec) 25 mcg VAG ONETIME PRN PRN Reason: Cervical Ripening Last Admin: 04/12/20 01:56 Dose: 25 mcg Documented by: Misoprostol (Cytotec) 25 mcg VAG Q4H PRN PRN Reason: Cervical Ripening Misoprostol (Cytotec) 25 mcg PO ONETIME ONE Stop: 04/12/20 01:02 Last Admin: 04/12/20 01:56 Dose: 25 mcg Documented by: Nalbuphine HCl (Nubain) 10 mg IVPUSH Q1H PRN PRN Reason: Pain (severe 7-10) Ondansetron HCl (Zofran) 4 mg IVPUSH Q6H PRN PRN Reason: Nausea/Vomiting Sodium Chloride (Saline Flush) 10 ml FLUSH ASDIRECTED PRN PRN Reason: Keep Vein Open Sodium Chloride (Saline Flush) 2.5 ml FLUSH ASDIRECTED PRN PRN Reason: Keep Vein Open Sodium Chloride (Normal Saline) 10 ml IV ASDIRECTED PRN PRN Reason: IV Use Sterile Water (Sterile Water For Irrigation) 1,000 ml IRR ASDIRECTED PRN PRN Reason: delivery Terbutaline Sulfate (Brethine) 0.25 mg SUBCUT ASDIRECTED PRN PRN Reason: Tacysystole - Exam General: Reports: Alert, Oriented, Cooperative, No Acute Distress Lungs: Reports: Normal Respiratory Effort Cardiovascular: Reports: Regular Rate, Regular Rhythm GI/Abdominal Exam: Soft, Non-Tender (Female) Exam: Deferred Rectal (Female) Exam: Deferred Extremities: Normal Inspection, Normal Range of Motion, Non-Tender, Normal Capillary Refill Skin: Reports: Warm, Dry, Intact Neurological: Reports: No New Focal Deficit, Normal Speech, Normal Tone, Strength Equal Bilateral, Sensation Intact Psy/Mental Status: Reports: Alert, Normal Affect, Normal Mood
--- NOTE | 2020-04-14 06:49 | PCM48HPAN ---
Post Anesthesia Note - EVALUATION WITHIN 48HRS OF ANESTHETIC Vital Signs in Normal Range: Yes Patient Participated in Evaluation: Yes Respiratory Function Stable: Yes Airway Patent: Yes Cardiovascular Function Stable: Yes Hydration Status Stable: Yes Pain Control Satisfactory: Yes Nausea and Vomiting Control Satisfactory: Yes Mental Status Recovered: Yes Vital Signs: Last Vital Signs Temp 36.2 C 04/13/20 07:21 Pulse 81 04/13/20 07:21 Resp 19 04/13/20 07:21 BP 110/67 04/13/20 07:21 Pulse Ox 97 04/13/20 07:21
== END 2020-04-13 16:20 | disposition home or self-care (01) | DRG 560 ==
LOC: MW.OBCHECK 00:14 → MW.OB 00:14 → MW.OBCHECK 00:54 → OBSVTOIN 13:57 → MW.OB 17:22
PROVIDERS: ADMIT Obstetrics & Gynecology; ATTEND Obstetrics & Gynecology
PROC: 10E0XZZ Delivery of Products of Conception, External Approach (ICD-10-PCS; principal; 2020-04-12)
PROC: 10907ZC Drainage of Amniotic Fluid, Therapeutic from Products of Conception, Via Natural or Artificial Opening (ICD-10-PCS; 2020-04-12)
PROC: 3E0R3BZ Introduction of Anesthetic Agent into Spinal Canal, Percutaneous Approach (ICD-10-PCS; 2020-04-12)
PROC: 00HU33Z Insertion of Infusion Device into Spinal Canal, Percutaneous Approach (ICD-10-PCS; 2020-04-12)
DX: O69.81X0 Labor and delivery complicated by cord around neck, without compression, not applicable or unspecified (principal); Z3A.39 39 weeks gestation of pregnancy; Z37.0 Single live birth; O99.62 Diseases of the digestive system complicating childbirth; K21.9 Gastro-esophageal reflux disease without esophagitis; Z20.828 Contact with and (suspected) exposure to other viral communicable diseases
CPT/HCPCS: 36415; 51702; 59025; 59409; 85014; 85018; 85027; 86592; 86850; 86900; 86901; A9270-GY; J0595; J2590; J2795; J3010; J7120; U0002

== ENCOUNTER 2021-02-19 03:44 | Emergency (ER) | payer BC ==
[2021-02-19] MEDS ORDERED: Sodium Chloride 0.9% 1,000 ML IV ONE (04:09)
[2021-02-19] MEDS ORDERED: Sodium Chloride 0.9% 10 ML Syringe FLUSH PRN (04:09)
[2021-02-19] MEDS ORDERED: Sodium Chloride 0.9% 2.5 ML Syringe FLUSH PRN (04:09)
--- NOTE | 2021-02-19 04:15 | EDM.PDOC ---
ED HPI GENERAL MEDICAL PROBLEM - General Chief Complaint: INVESTMENT DIRECTOR Problem Stated Complaint: POSSIBLE MISCARRIAGE- 15 WEEKS Time Seen by Provider: 02/19/21 03:50 - History of Present Illness INITIAL COMMENTS - FREE TEXT/NARRATIVE: HISTORY AND PHYSICAL: History of present illness: This is a 30-year-old female who is 5 para 1 at approximately 15 weeks by ultrasound who presents ER today with significant amount of vaginal bleeding when she woke up today. Patient reports on January 31 she had some vaginal spotting while she was visiting and had an ultrasound done at that time. Patient reports that she saw her OB on January 06 and was still having some vaginal spotting. Patient reports that she been doing well over the last couple weeks with intermittent episodes of vaginal spotting however this evening when she woke she had a significant amount of gushing of blood from her vaginal area noted twice that filled up the toilet bowl. Patient reports some mild abdominal cramping. Patient has any recent fevers, shakes, chills, nausea, vomiting, diarrhea, dysuria, frequency or urgency. Patient has no ultrasound documented here in the computer system for this . Review of systems: As per history of present illness and below otherwise all systems reviewed and negative. Past medical history: As per history of present illness and as reviewed below otherwise noncontributory. Surgical history: As per history of present illness and as reviewed below otherwise noncontributory. Social history: No reported history of drug abuse. Family history: As per history of present illness and as reviewed below otherwise noncontributory. Physical exam: This patient was seen and evaluated during the 2019 SARS-CoV-2 novel coronavirus pandemic period. Community viral transmission is ongoing at time of this encounter and the emergency department is operating under pandemic response procedures. Constitutional: Patient is oriented to person, place, and time. Appears well- developed and well-nourished. No distress. HEENT: Moist mucous membranes Head: Normocephalic and atraumatic Eyes: Right eye exhibits no discharge. Left eye exhibits no discharge. No scleral icterus Neck: Normal range of motion. No tracheal deviation present. Cardiovascular: Normal rate and regular rhythm. Pulmonary: Effort normal, no respiratory distress. Abdominal: No distention Musculoskeletal: Normal range of motion Neurologic: Alert and oriented to person, place and time. Skin: [place], warm and dry. Psychiatric: Normal mood and affect. Behavior is normal. Judgment and thought content normal. Nursing note and vital signs have been reviewed Diagnostics: Ultrasound: Single viable intrauterine with an estimated gestational age of 15 weeks and 2 days. Therapeutics: [] Assessment and plan: 30-year-old female who is 5 para 1 who presents ER today secondary to vaginal bleeding. Patient will have labs drawn and will get an ultrasound. Ultrasound reviewed and reveals a 15-week 2-day IUP without any other significant abnormalities. Patient's blood type is A- but still has a positive anti-D antibody titer. Half-life of the RhoGam is approximately 3 weeks and patient is roughly 3 weeks out from her RhoGam injection from [place] when she had it done on January 31. Although the patient's antibody was titer is positive I have discussed the case with the lab and they report that the hospital's recommendation is that she should receive 300 mcg of RhoGam secondary to her continued bleeding. Given that she is roughly 3 weeks out and the half-life is 3 weeks, and the recommenda tion from our lab, and the low risk from the program, I will go ahead and give the patient her 300 mcg here in the ED will have her follow-up with her OB doctor for further evaluation. Definitive disposition and diagnosis as appropriate pending reevaluation and review of above. 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 , , Spontaneous Musculoskeletal History: Reports: None Neurological History: Reports: Migraines Psychiatric History: Reports: None Endocrine/Metabolic History: Reports: None Hematologic History: Reports: None Immunologic History: Reports: None Oncologic (Cancer) History: Reports: None Dermatologic History: Reports: None - Infectious Disease History Infectious Disease History: Reports: Chicken Pox - Past Surgical History Head Surgeries/Procedures: Reports: None HEENT Surgical History: Reports: None Cardiovascular Surgical History: Reports: None Respiratory Surgical History: Reports: None GI Surgical History: Reports: None Female Surgical History: Reports: D&C Endocrine Surgical History: Reports: None Neurological Surgical History: Reports: None Musculoskeletal Surgical History: Reports: None Oncologic Surgical History: Reports: None Dermatological Surgical History: Reports: None Social & Family History - Family History HEENT: Reports: Hearing Impairment, Impaired Vision Cardiac: Reports: Hypertension Respiratory: Reports: None GI: Reports: Cholelithiasis : Reports: None OBGYN: Reports: Musculoskeletal: Reports: None Neurological: Reports: None Psychiatric: Reports: None Endocrine/Metabolic: Reports: Diabetes, type II Hematologic: Reports: None Immunologic: Reports: None Dermatologic: Reports: None Oncologic: Reports: None - Tobacco Use Tobacco Use Status *Q: Current Status Unknown - Caffeine Use Caffeine Use: Reports: Coffee - Recreational Drug Use Recreational Drug Use: No ED ROS GENERAL - Review of Systems Review Of Systems: See Below ED EXAM, GENERAL - Physical Exam Exam: See Below Course - Vital Signs Last Recorded V/S: Last Vital Signs Temp 98.3 F 02/19/21 06:35 Pulse 75 02/19/21 06:35 Resp 18 02/19/21 06:35 BP 107/71 02/19/21 06:35 Pulse Ox 97 02/19/21 06:35 - Orders/Labs/Meds Orders: Active Orders 24 hr Category Date Time Status Saline Lock Insert [OM.PC] Stat Oth 02/19/21 04:09 Ordered Labs: Laboratory Tests 02/19/21 02/19/21 02/19/21 Range/Units 03:50 03:50 03:50 WBC 6.61 (4.0-11.0) K/uL RBC 4.41 (4.30-5.90) M/uL Hgb 14.2 (12.0-16.0) g/dL Hct 39.7 (36.0-46.0) % MCV 90.0 (80.0-98.0) fL MCH 32.2 H (27.0-32.0) pg MCHC 35.8 (31.0-37.0) g/dL RDW Std Deviation 39.3 (28.0-62.0) fl RDW Coeff of Nancy 12 (11.0-15.0) % Plt Count 266 (150-400) K/uL MPV 10.10 (7.40-12.00) fL Neut % (Auto) 51.0 (48.0-80.0) % Lymph % (Auto) 38.4 (16.0-40.0) % [place] % (Auto) 9.4 (0.0-15.0) % Eos % (Auto) 0.9 (0.0-7.0) % Baso % (Auto) 0.3 (0.0-1.5) % Neut # (Auto) 3.4 (1.4-5.7) K/uL Lymph # (Auto) 2.5 H (0.6-2.4) K/uL [place] # (Auto) 0.6 (0.0-0.8) K/uL Eos # (Auto) 0.1 (0.0-0.7) K/uL Baso # (Auto) 0.0 (0.0-0.1) K/uL Nucleated RBC % 0.0 /100WBC Nucleated RBCs # 0 K/uL Sodium 138 (136-145) mmol/L Potassium 3.8 (3.5-5.1) mmol/L Chloride 103 (98-107) mmol/L Carbon Dioxide 24.1 (21.0-32.0) mmol/L BUN 8 (7.0-18.0) mg/dL Creatinine 0.7 (0.6-1.0) mg/dL Est Cr Clr Drug Dosing 116.39 mL/min Estimated GFR (MDRD) > 60.0 ml/min Glucose 104 (74-106) mg/dL Calcium 8.7 (8.5-10.1) mg/dL Total Bilirubin 0.2 (0.2-1.0) mg/dL AST 13 L (15-37) IU/L ALT 17 (14-63) IU/L Alkaline Phosphatase 57 (46-116) U/L Total Protein 6.9 (6.4-8.2) g/dL Albumin 3.5 (3.4-5.0) g/dL Globulin 3.4 (2.6-4.0) g/dL Albumin/Globulin Ratio 1.0 (0.9-1.6) HCG, Quant 13618.0 mIU/mL Blood Type Antibody Screen Antibody Identification Rhogam Indicated 02/19/21 Range/Units 04:26 WBC (4.0-11.0) K/uL RBC (4.30-5.90) M/uL Hgb (12.0-16.0) g/dL Hct (36.0-46.0) % MCV (80.0-98.0) fL MCH (27.0-32.0) pg MCHC (31.0-37.0) g/dL RDW Std Deviation (28.0-62.0) fl RDW Coeff of Nancy (11.0-15.0) % Plt Count (150-400) K/uL MPV (7.40-12.00) fL Neut % (Auto) (48.0-80.0) % Lymph % (Auto) (16.0-40.0) % [place] % (Auto) (0.0-15.0) % Eos % (Auto) (0.0-7.0) % Baso % (Auto) (0.0-1.5) % Neut # (Auto) (1.4-5.7) K/uL Lymph # (Auto) (0.6-2.4) K/uL [place] # (Auto) (0.0-0.8) K/uL Eos # (Auto) (0.0-0.7) K/uL Baso # (Auto) (0.0-0.1) K/uL Nucleated RBC % /100WBC Nucleated RBCs # K/uL Sodium (136-145) mmol/L Potassium (3.5-5.1) mmol/L Chloride (98-107) mmol/L Carbon Dioxide (21.0-32.0) mmol/L BUN (7.0-18.0) mg/dL Creatinine (0.6-1.0) mg/dL Est Cr Clr Drug Dosing mL/min Estimated GFR (MDRD) ml/min Glucose (74-106) mg/dL Calcium (8.5-10.1) mg/dL Total Bilirubin (0.2-1.0) mg/dL AST (15-37) IU/L ALT (14-63) IU/L Alkaline Phosphatase (46-116) U/L Total Protein (6.4-8.2) g/dL Albumin (3.4-5.0) g/dL Globulin (2.6-4.0) g/dL Albumin/Globulin Ratio (0.9-1.6) HCG, Quant mIU/mL Blood Type A NEGATIVE Antibody Screen POSITIVE Antibody Identification Anti-D Rhogam Indicated YES Meds: Medications Discontinued Medications Generic Name Dose Route Start Last Admin Trade Name Kristi PRN Reason Stop Dose Admin Sodium Chloride 1,000 mls @ 999 mls/hr 02/19/21 04:09 02/19/21 04:19 Normal Saline IV 02/19/21 05:09 999 mls/hr .Bolus ONE Administration Sodium Chloride 10 ml 02/19/21 04:09 Sodium Chloride 0.9% 10 Ml Syringe FLUSH ASDIRECTED PRN Keep Vein Open Sodium Chloride 2.5 ml 02/19/21 04:09 Sodium Chloride 0.9% 2.5 Ml Syringe FLUSH ASDIRECTED PRN Keep Vein Open Departure - Departure Time of Disposition: 05:38 Disposition: Home, Self-Care 01 Condition: Good Clinical Impression: Threatened - Discharge Information Instructions: Rh0 [D] Immune Globulin injection, Threatened Miscarriage, [id number] Referrals: PCP,None [Primary Care Provider] - Forms: ED Department Discharge Additional Instructions: Your seen and evaluated in the ER today secondary to vaginal bleeding during . The ultrasound that we received today showed a single viable intrauterine with an estimated gestational age of 15 weeks and 2 days. Your blood type is A-. You received a RhoGam injection approximately 3 weeks ago ready however according to our lab, it would be recommended that you receive an additional 300 mcg of RhoGam today. Please make an appointment to see your OB doctor the next 1 to 2 days for reevaluation. The following information is given to patients seen in the emergency department who are being discharged to home. This information is to outline your options for follow-up care. We provide all patients seen in our emergency department with a follow-up referral. The need for follow-up, as well as the timing and circumstances, are variable depending upon the specifics of your emergency department visit. If you don't have a primary care physician on staff, we will provide you with a referral. We always advise you to contact your personal physician following an emergency department visit to inform them of the circumstance of the visit and for follow-up with them and/or the need for any referrals to a consulting specialist. The emergency department will also refer you to a specialist when appropriate. This referral assures that you have the opportunity for follow-up care with a specialist. All of these measure are taken in an effort to provide you with optimal care, which includes your follow-up. Under all circumstances we always encourage you to contact your private physician who remains a resource for coordinating your care. When calling for follow-up care, please make the office aware that this follow-up is from your recent emergency room visit. If for any reason you are refused follow-up, please contact the [facility] Emergency Department at and asked to speak to the emergency department charge nurse. [facility] [address] [place] [id number] [facility] [address] [place] [id number] Sepsis Event Note (ED) - Evaluation Sepsis Screening Result: No Definite Risk - My Orders Last 24 Hours: My Active Orders 02/19/21 04:09 Saline Lock Insert [OM.PC] Stat - Assessment/Plan Last 24 Hours: My Active Orders 02/19/21 04:09 Saline Lock Insert [OM.PC] Stat
[2021-02-19 04:18] LABS: BLOOD UREA NITROGEN,BUN 8 mg/dL (7.0-18.0); CARBON DIOXIDE,CO2 24.1 mmol/L (21.0-32.0); CHLORIDE,CL 103 mmol/L (98-107); GLUCOSE RANDOM 104 mg/dL (74-106); POTASSIUM,K 3.8 mmol/L (3.5-5.1); SODIUM,NA 138 mmol/L (136-145)
--- NOTE | 2021-02-19 05:12 | US ---
For Patients: As a result of the Cures Act, medical imaging exams and procedure reports are released immediately into your electronic medical record. You may view this report before your referring provider. If you have questions, please contact your health care provider. INDICATION: Vaginal bleeding TECHNIQUE: Ultrasound OB pelvis transabdominal. Real-time leung-scale imaging of the fetus was performed with anatomic survey limited to biometric measurements. COMPARISON: None FINDINGS: Sonographic imaging demonstrates a single intrauterine gestation. Both ovaries are unremarkable in appearance. heart rate: 161 bpm Orientation: Breech Placenta: Anterior fundal Amniotic fluid: Subjectively normal Cervix: Not visualized The composite ultrasound gestational age is calculated at 15 weeks, 2 days with an estimated sonographic due date of 08/11/2021. The estimated weight is 116 +/-17 grams which lies at the 57 %. The following biometric measurements were obtained: Biparietal diameter: 2.9 cm Head circumference: 10.9 cm Abdominal circumference: 8.7 cm Femur length: 1.8 cm IMPRESSION: 1. Single viable intrauterine with an estimated gestational age of 15 weeks, 2 days. 2. Follow-up ultrasound for anatomic survey is recommended. Dictated by Jaquan Obregon MD @ 02/19/2021 5:10:12 AM Dictated by: Jaquan Obregon MD @ 02/19/2021 05:10:23 (Electronically Signed)
[2021-02-19 06:40] VITALS: BP 107/71; PULSE 75
== END 2021-02-19 06:38 | disposition home or self-care (01) ==
LOC: MW.ED 03:44
DX: O20.0 Threatened abortion (principal); Z3A.15 15 weeks gestation of pregnancy
CPT/HCPCS: 36415; 76801; 80053; 84702; 85025; 86850; 86870; 86900; 86901; 90384; 99284; J7030; J2790

== ENCOUNTER 2022-08-03 03:00 | Emergency (ER) | payer BC ==
[2022-08-03] MEDS ORDERED: Sodium Chloride 0.9% 2.5 ML Syringe FLUSH PRN (03:23)
[2022-08-03] MEDS ORDERED: Sodium Chloride 0.9% 1,000 ML IV ONE (03:23)
[2022-08-03] MEDS ORDERED: Sodium Chloride 0.9% 10 ML Syringe FLUSH PRN (03:23)
[2022-08-03] MEDS ORDERED: Ondansetron 4 MG/2 ML SDV IVPUSH ONE (03:23)
[2022-08-03] MEDS ORDERED: Ketorolac 30 MG/ML SDV IVPUSH ONE (03:23)
[2022-08-03 03:40] LABS: CARBON DIOXIDE,CO2 25.3 mmol/L (21.0-32.0); POTASSIUM,K 3.5 mmol/L (3.5-5.1)
[2022-08-03 05:11] LABS: CORONAVIRUS COVID-19 NAA NEGATIVE (NEGATIVE); INFLUENZA A NAA NEGATIVE (NEGATIVE); INFLUENZA B NAA NEGATIVE (NEGATIVE)
[2022-08-03 05:42] VITALS: BP 124/75; PULSE 65
== END 2022-08-03 06:07 | disposition home or self-care (01) ==
LOC: MW.ED 03:00
DX: K80.50 Calculus of bile duct without cholangitis or cholecystitis without obstruction (principal); K80.20 Calculus of gallbladder without cholecystitis without obstruction; F17.210 Nicotine dependence, cigarettes, uncomplicated
CPT/HCPCS: 0240U; 36415; 76705; 80053; 81003; 83690; 85025; 96361; 96374; 96375; 99284; J1885; J2405; J3490; J7030

== ENCOUNTER 2022-08-24 08:13 | Day surgery (SDC) | payer BC ==
[~2022-08-24 08:13] MED LIST changes: -Iopamidol 612 MG/ML 30 ML SDV IUTERINE STA; +Lactated Ringers 1,000 ML IV SCH; +Scopolamine 1.5 MG Transdermal Patch TOP ONE; +cefOXitin 2 GM in Premix Bag 1 BAG IV ONE
[2022-08-24] MEDS ORDERED: Metoclopramide 10 MG/2 ML SDV IVPUSH PRN (08:53)
[2022-08-24] MEDS ORDERED: Albuterol 0.083% 2.5 MG/3 ML Neb Soln NEB PRN (08:53)
[2022-08-24] MEDS ORDERED: HYDROmorphone 1 MG/ML Syringe IVPUSH PRN (08:53)
[2022-08-24] MEDS ORDERED: Naloxone 0.4 MG/ML SDV IVPUSH PRN (08:53)
[2022-08-24] MEDS ORDERED: Morphine 2 MG/ML SYRINGE IVPUSH PRN (08:53)
[2022-08-24] MEDS ORDERED: Ondansetron 4 MG/2 ML SDV IVPUSH PRN (08:53)
[2022-08-24] MEDS ORDERED: fentaNYL 50 MCG/ML SDV IVPUSH PRN (08:53)
[2022-08-24] MEDS ORDERED: Bupivacaine 0.25% 30 ML SDV ONE (08:58)
[2022-08-24] MEDS ORDERED: Ropivacaine 0.5% 5 MG/ML 30 ML SDV ONE (08:58)
[2022-08-24] MEDS ORDERED: Water For Injection, Sterile 20 ML ONE (09:19)
[2022-08-24] MEDS ORDERED: cefOXitin 1 GM Vial ONE (09:19)
[2022-08-24] MEDS ORDERED: ceFAZolin 1 GM Vial ONE (09:20)
[2022-08-24] MEDS ORDERED: Bupivacaine 0.5% 30 ML SDV ONE (09:20)
[2022-08-24] MEDS ORDERED: Propofol 200 MG/20 ML SDV ONE (09:20)
[2022-08-24] MEDS ORDERED: fentaNYL 100 MCG/2 ML SDV ONE (09:21)
[2022-08-24] MEDS ORDERED: Rocuronium 100 MG/10 ML MDV ONE (09:23)
[2022-08-24] MEDS ORDERED: Dexmedetomidine 200 MCG/2 ML SDV ONE (09:24)
[2022-08-24] MEDS ORDERED: Lidocaine 2% 5 ML SDV ONE (09:24)
[2022-08-24] MEDS ORDERED: Ondansetron 4 MG/2 ML SDV ONE ×2 (09:24)
[2022-08-24] MEDS ORDERED: Dexamethasone 4 MG/ML 5 ML MDV ONE (09:24)
[2022-08-24] MEDS ORDERED: Ketorolac 30 MG/ML SDV ONE (09:24)
[2022-08-24] MEDS ORDERED: Sugammadex Sodium 200 MG/2 ML VIAL ONE (10:30)
[2022-08-24] MEDS ORDERED: HYDROmorphone 2 MG/ML Syringe ONE (10:36)
[2022-08-24] MEDS ORDERED: Acetaminophen/HYDROcodone 325-5 MG Tab PO PRN (11:06)
[2022-08-24] MEDS ORDERED: Morphine 4 MG/ML Syringe IVPUSH PRN (11:06)
[2022-08-24] MEDS ORDERED: Lactated Ringers 1,000 ML IV SCH (11:15)
[2022-08-24 14:03] VITALS: BP 116/80; PULSE 62
== END 2022-08-24 13:30 | disposition home or self-care (01) ==
LOC: MW.SDS 08:13
PROVIDERS: ATTEND Surgery
DX: K80.10 Calculus of gallbladder with chronic cholecystitis without obstruction (principal); F17.210 Nicotine dependence, cigarettes, uncomplicated; J45.909 Unspecified asthma, uncomplicated; K21.9 Gastro-esophageal reflux disease without esophagitis; G43.909 Migraine, unspecified, not intractable, without status migrainosus; Z79.899 Other long term (current) drug therapy; Z98.890 Other specified postprocedural states; Z88.7 Allergy status to serum and vaccine
CPT/HCPCS: 47562; 81025; A9270; J0131; J0694; J1100; J1170; J1885; J2405; J2704; J2795; J3010; J3490; J7120; J0690

== ENCOUNTER 2023-08-26 19:50 | Emergency (ER) | payer BC ==
[2023-08-26 22:28] VITALS: BP 138/76; PULSE 87
== END 2023-08-26 22:28 | disposition home or self-care (01) ==
LOC: MW.ED 19:50
DX: S93.402A Sprain of unspecified ligament of left ankle, initial encounter (principal); F17.210 Nicotine dependence, cigarettes, uncomplicated; Z88.7 Allergy status to serum and vaccine; X50.0XXA Overexertion from strenuous movement or load, initial encounter
CPT/HCPCS: 73610-26-LT; 73610-LT; 99282; 99283